=== PATIENT | male | born 1975 | race Caucasian/White ===

== ENCOUNTER 2017-08-14 02:44 | Emergency (ER) | payer OTHER ==
[~2017-08-14] VITALS: Ht 167.6 cm; Wt 72.0 kg
[~2017-08-14 02:44] MED LIST: DIAZ5 PO; HYDR-3129 PO
[2017-08-14 02:48] VITALS: BP 150/90; PULSE 112; RESP 16; TEMP 98.1; O2SAT 96
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
[2017-08-14] MEDS ORDERED: ceFAZolin 2 GM PREMIX 50 ML IV ONE (03:30)
[2017-08-14] MEDS ORDERED: SODIUM CHLOR 0.9% 1000 ML INJ 1,000 ML IV ONE (03:30)
[2017-08-14] MEDS ORDERED: DIPHTH/TETANUS/ACEL PERTUSSIS (BOOSTER) 0.5 ML VIAL/PFS IM ONE (03:30)
[2017-08-14 03:47] LABS: AUTOMATED NEUTROPHIL # 6.8 TH/MM3 (1.8-7.7); BASOPHIL % 0.2 % (0.0-2.0); EOSINOPHIL % 0.3 % (0.0-4.0); HEMATOCRIT 44.7 % (39.0-51.0); HEMO FLAGS DIFF FINAL; LYMPH % 10.1 % (9.0-44.0); LYMPHOCYTE # 0.8 TH/MM3 (1.0-4.8); MEAN CORPUSCULAR HEMOGLOBIN 31.1 PG (27.0-34.0); MEAN CORPUSCULAR HGB CONC 35.8 % (32.0-36.0); MONO % 5.9 % (0.0-8.0); NEUT % 83.5 % (16.0-70.0); PLATELET COUNT 218 TH/MM3 (150-450); RED BLOOD COUNT 5.14 MIL/MM3 (4.50-5.90); RED CELL DISTRIBUTION WIDTH 13.1 % (11.6-17.2); WHITE BLOOD COUNT 8.2 TH/MM3 (4.0-11.0)
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
[2017-08-14 03:57] LABS: APTT (PATIENT) 28.4 SEC (24.3-30.1); PROTHROMBIN TIME - PATIENT 11.1 SEC (9.8-11.6)
[2017-08-14 04:14] LABS: ALT (GPT) 71 U/L (12-78); ANION GAP 9 MEQ/L (5-15); AST (GOT) 224 U/L (15-37); BICARBONATE 25.1 MEQ/L (21.0-32.0); BLOOD UREA NITROGEN 25 MG/DL (7-18); CHLORIDE 105 MEQ/L (98-107); GLOMERULAR FILTRATION RATE 50 ML/MIN (>89); SODIUM (NA) 139 MEQ/L (136-145)
[2017-08-14] MEDS ORDERED: ACETAMINOPHEN 325 MG TAB PO ONE (04:15)
[2017-08-14 04:16] LABS: ALKALINE PHOSPHATASE 87 U/L (45-117); TOTAL BILIRUBIN ADULT 0.4 MG/DL (0.2-1.0)
[2017-08-14 04:29] LABS: ALCOHOL LESS THAN 3 MG/DL (0-5)
[2017-08-14] MEDS ORDERED: EMTR1TAB2 PO (04:37)
[2017-08-14] MEDS ORDERED: KLON2TAB PO (04:37)
[2017-08-14] MEDS ORDERED: IOHEXOL 350 MG/ML 10 ML VIAL (for RAD DIAG) IVCONTRAST ONE (04:48)
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
[2017-08-14] MEDS ORDERED: HYDR-3516 PO (05:27)
[2017-08-14 05:45] LABS: BLOOD, URINE MOD (NEG); GLUCOSE,URINE NEG (NEG); KETONE, URINE 10 mg/dL (NEG); NITRITE,URINE NEG (NEG); PH, URINE 5.5 (5.0-8.5); URINE COLOR YELLOW (YELLW/STRAW)
[2017-08-14 05:56] LABS: COMMENT (UR) CULT NOT INDICATED; CULTURE IF INDICATED CULT NOT INDICATED; HYALINE CAST, URINE 0-2 /lpf (RARE); SQUAMOUS EPITHELIAL CELL URINE 0-5 /hpf (0-5); WBC, URINE 0-2 /hpf (0-5)
== END 2017-08-14 06:37 | disposition home or self-care (01) ==
LOC: NEPE 02:44
DX: S09.90XA Unspecified injury of head, initial encounter (principal); M54.5 Low back pain; M54.2 Cervicalgia; S00.81XA Abrasion of other part of head, initial encounter; S60.519A Abrasion of unspecified hand, initial encounter; Q61.01 Congenital single renal cyst; Y04.8XXA Assault by other bodily force, initial encounter; Z23 Encounter for immunization; Z21 Asymptomatic human immunodeficiency virus [HIV] infection status
CPT/HCPCS: 70450; 70486; 71010; 72125; 72131; 72170; 73564; 74177; 80053; 80307; 81001; 83690; 85025; 85610; 85730; 90471; 90715; 96361; 96365; 99285; J0690; J7030; Q9967

== ENCOUNTER 2017-10-09 17:34 | Emergency (ER) | payer OTHER ==
[~2017-10-09] VITALS: Ht 167.6 cm; Wt 69.0 kg
[~2017-10-09 17:34] MED LIST changes: -DIAZ5 PO; +EMTR1TAB2 PO; -HYDR-3129 PO; +HYDR-3516 PO; +KLON2TAB PO
[2017-10-09 17:39] VITALS: BP 98/72; PULSE 129; RESP 18; TEMP 99; O2SAT 99
[2017-10-09] MEDS ORDERED: NEUR100C PO (17:50)
[2017-10-09] MEDS ORDERED: SODIUM CHLOR 0.9% 1000 ML INJ 1,000 ML IV SCH (17:54)
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
[2017-10-09 18:46] LABS: AUTOMATED NEUTROPHIL # 6.3 TH/MM3 (1.8-7.7); BASOPHIL % 0.3 % (0.0-2.0); EOSINOPHIL % 0.3 % (0.0-4.0); HEMATOCRIT 45.4 % (39.0-51.0); HEMOGLOBIN 15.8 GM/DL (13.0-17.0); LYMPH % 13.5 % (9.0-44.0); LYMPHOCYTE # 1.1 TH/MM3 (1.0-4.8); MEAN CELL VOLUME 87.6 FL (80.0-100.0); MEAN CORPUSCULAR HEMOGLOBIN 30.4 PG (27.0-34.0); MEAN CORPUSCULAR HGB CONC 34.7 % (32.0-36.0); MEAN PLATELET VOLUME 7.4 FL (7.0-11.0); MONO % 4.6 % (0.0-8.0); MONOCYTE # 0.4 TH/MM3 (0-0.9); NEUT % 81.3 % (16.0-70.0); PLATELET COUNT 179 TH/MM3 (150-450); RED BLOOD COUNT 5.18 MIL/MM3 (4.50-5.90); WHITE BLOOD COUNT 7.8 TH/MM3 (4.0-11.0)
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
[2017-10-09] MEDS ORDERED: IBUPROFEN 600 MG TAB PO ONE (19:30)
[2017-10-09 20:04] LABS: AST (GOT) 43 U/L (15-37); BICARBONATE 26.2 MEQ/L (21.0-32.0); BLOOD UREA NITROGEN 22 MG/DL (7-18); CHLORIDE 108 MEQ/L (98-107); CREATININE 1.31 MG/DL (0.60-1.30); GLOMERULAR FILTRATION RATE 60 ML/MIN (>89); GLUCOSE,RANDOM 66 MG/DL (74-106); SODIUM (NA) 140 MEQ/L (136-145)
[2017-10-09 20:05] LABS: ALT (GPT) 29 U/L (12-78)
[2017-10-09 20:08] LABS: ALKALINE PHOSPHATASE 85 U/L (45-117); TOTAL BILIRUBIN ADULT 0.3 MG/DL (0.2-1.0)
[2017-10-09] MEDS ORDERED: IOHEXOL 350 MG/ML 10 ML VIAL (for RAD DIAG) IVCONTRAST ONE (20:29)
[2017-10-09 20:35] VITALS: BP 112/74; PULSE 105; RESP 16; O2SAT 97
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
[2017-10-09] MEDS ORDERED: ALPRAZolam 0.25 MG TAB PO ONE (21:00)
[2017-10-09] MEDS ORDERED: ACETAMINOPHEN/HYDROcodone 325 MG/5 MG TAB PO ONE (21:00)
--- NOTE | 2017-10-10 15:35 | EKG ---
Date Performed: 10/09/2017 Time Performed: 18:37:54 PTAGE: 41 years EKG: SINUS TACHYCARDIA INCOMPLETE RIGHT BUNDLE BRANCH BLOCK Since previous tracing, no significa nt change noted ABNORMAL RHYTHM ECG PREVIOUS TRACING : 05/02/2012 05.33 DOCTOR: Sita Mistry Interpretating Date/Time 10/10/2017 15:35:02
== END 2017-10-09 21:25 | disposition home or self-care (01) ==
LOC: NEPC 17:34
DX: S01.81XA Laceration without foreign body of other part of head, initial encounter (principal); S00.83XA Contusion of other part of head, initial encounter; S10.93XA Contusion of unspecified part of neck, initial encounter; R94.31 Abnormal electrocardiogram [ECG] [EKG]; Y04.2XXA Assault by strike against or bumped into by another person, initial encounter; F41.8 Other specified anxiety disorders; K21.9 Gastro-esophageal reflux disease without esophagitis; F17.200 Nicotine dependence, unspecified, uncomplicated; Z21 Asymptomatic human immunodeficiency virus [HIV] infection status; Z87.442 Personal history of urinary calculi; Z87.39 Personal history of other diseases of the musculoskeletal system and connective tissue; Z79.899 Other long term (current) drug therapy
CPT/HCPCS: 12011; 70450; 70486; 71045; 72072; 72100; 74177; 80053; 80307; 85025; 85610; 85730; 86850; 86900; 86901; 93005; 96360; 99285; J7030; Q9967